=== PATIENT | male | born 1975 | race African-American/Black ===

== ENCOUNTER 2017-05-19 09:00 | Inpatient (IN) | payer MEDICARE, OTHER ==
[~2017-05-19] VITALS: Ht 185.4 cm; Wt 73.0 kg
--- NOTE | ~2017-05-19 | HP ---
Unit #: [id number] #: [id number] Patient: ZELDA CHAN [id number] [place] [address] [id number] I MR#: [id number] NAME: ZELDA CHAN ROOM: 74 Age: 42 Sex: M Admission Date: 05/19/2017 : 1975 Attending Physician: Carmel Garner M.D. Admitting Physician: Carmel Garner M.D. Primary Care Physician: Generic Doctor Not In System HISTORY AND PHYSICAL HISTORY OF PRESENT ILLNESS Zelda is a 42-year-old male admitted on 05/19/2017 to [facility] for depression with suicidal ideation and detox from crack cocaine. PAST MEDICAL HISTORY None. PAST SURGICAL HISTORY None. ALLERGIES None. SOCIAL HISTORY Smokes 2 packs of cigarettes daily. No alcohol use and does report daily use of crack cocaine. He is currently single and living alone. FAMILY HISTORY Noncontributory. REVIEW OF SYSTEMS CONSTITUTIONAL: No fever or chills. HEENT: Denies any sore throat, ear pain or runny nose. CARDIOVASCULAR: Denies chest pain, irregular heart rhythm or palpitations. CHEST: Denies shortness of breath or cough. No hemoptysis. GASTROINTESTINAL: Denies nausea, vomiting, diarrhea or chronic constipation. ENDOCRINE: Denies history of increased thirst or urination. No recent significant weight loss or gain. GENITOURINARY: Denies dysuria, frequency, or hematuria. SKIN: Denies any rashes. HEMATOLOGIC: Denies history of increased bleeding or bruising. MUSCULOSKELETAL: Denies any hot, swollen joints. No generalized muscle pain. NEUROLOGIC: Denies problems with vision or speech. No frequent, severe headaches. No numbness, tingling or weakness in any extremities. Denies loss of bladder or bowel control. CURRENT MEDICATIONS None. PHYSICAL EXAMINATION GENERAL: Alert, oriented, in no acute distress. Unit #: [id number] #: [id number] Patient: ZELDA CHAN VITAL SIGNS: Blood pressure 104/84, heart rate 95, respirations 16, temperature 98.7. HEIGHT: 6 feet 1. WEIGHT: 161 pounds. SKIN: Warm and dry without rash or lesion. HEENT: Normocephalic. TMs not viewed. Oral and nasal passages clear. Conjunctivae clear. PERRLA. EOMs intact. NECK: Supple without lymphadenopathy or thyromegaly. HEART: Regular rate and rhythm without murmur. LUNGS: Clear. ABDOMEN: Soft, nontender, without masses or hepatosplenomegaly. : Not done. EXTREMITIES: No evidence of cyanosis, clubbing or edema. Moves all without focal deficit. NEUROLOGICAL: Grossly within normal limits. Cranial Nerves: II: Visual webb are intact. III, IV AND : Extraocular movements are intact. Pupils are equal, round and reactive to light. V: Facial sensation is grossly normal. VII: Facial movements and expression are normal. VIII: Auditory acuity grossly intact. IX, X: Uvula is midline. Phonation is normal. XI: Patient shrugs shoulders and turns head normally. XII: Tongue protrudes in the midline. Sensory and Motor Function: Sensory and motor sensation is grossly normal. Motor: moves all extremities well. Coordination: Gait is normal. Deep Tendon Reflexes: Intact. IMPRESSION Psychiatric admission. RECOMMENDATIONS PSYCHIATRIC: Per psychiatrist. MEDICAL: No contraindication to participate in facility's activities. MEDICAL PROGNOSIS Good. MEDICAL CONDITION Stable. Dictated by... Maciej Brown/mary ellen TD: 05/19/2017 23:06 JOB #: [id number] Unit #: [id number] #: [id number] Patient: ZELDA CHAN HISTORY AND PHYSICAL Page 1 of 1 X FERN GUILLEN APRN X HISTORY AND PHYSICAL
--- NOTE | ~2017-05-19 | PN ---
Unit #: [id number] #: [id number] Patient: ZELDA NAVARRO [id number] [facility] [address] [place] [address] [id number] I MR#: [id number] NAME: ZELDA NAVARRO ROOM: 30 Age: 42 Sex: M Admission Date: 05/19/2017 : 1975 Attending Physician: Carmel Garner M.D. Admitting Physician: aCrmel Garner M.D. Primary Care Physician: Generic Doctor Not In System [facility] PROGRESS NOTES DATE May 29, 2017 DISCUSSION Mr. Navarro is a 42-year-old male, who was seen today and chart was reviewed and the case was discussed with the staff. He has been anxious, withdrawn, and rather seclusive to himself. Meanwhile, he has been cooperative with the treatment recommendations and he has been taking the medications and appears to be showing some improvement in his mood and psychosis. MENTAL STATUS EXAMINATION Middle-aged male, who was casually dressed with fair personal hygiene and appears to be in no acute distress or discomfort. He was awake and alert with intact orientation. His mood is anxious with a congruent affect. His speech is slow and goal-directed. He denies any suicidal or homicidal ideations. His insight and judgment remain slightly impaired. TREATMENT PLAN 1. We will continue him on his current medications and treatment protocol, and will monitor his response to the medications, and make further adjustments as needed. 2. We will continue to followup. Dictated by... Cj Fermin/cale TD: 05/30/2017 07:06 JOB #: [id number] Unit #: [id number] #: [id number] Patient: ZELDA NAVARRO PROGRESS NOTES Page 1 of 1 X Carmel Garner MD PROGRESS NOTE
--- NOTE | ~2017-05-19 | PN ---
Unit #: [id number] #: [id number] Patient: ZELDA NAVARRO [id number] [facility] [address] [place] [address] [id number] I MR#: [id number] NAME: ZELDA NAVARRO ROOM: [facility] Age: 42 Sex: M Admission Date: 05/19/2017 : 1975 Attending Physician: Carmel Garner M.D. Admitting Physician: Carmel Garner M.D. Primary Care Physician: Kianna Doctor Not In System [facility] PROGRESS NOTES DATE 05/23/2017 DISCUSSION Mr. Navarro is a 42-year-old, male who was seen today and chart was reviewed and case was discussed with the staff. He has been anxious, withdrawn and rather seclusive to himself. Meanwhile, he has been cooperative with treatment recommendations. He has been taking the medication and tolerating them fairly well with no reported side effects. MENTAL STATUS EXAM Middle-aged male who was casually dressed with fair personal hygiene, appears to be in no acute distress or discomfort. He was awake and alert on interaction with intact orientation. His mood was anxious with impaired attention and concentration. His mood was anxious with a congruent affect. His speech was slow and restricted in content. He denies any suicidal or homicidal ideation. Also, denies any auditory or visual hallucinations. His insight and judgement remains slightly impaired. TREATMENT PLAN 1. We will continue him on his current medications and treatment protocol. We will monitor his response to the medication and make further adjustments as needed. 2. We will continue to follow up. Dictated by... Cj Fermin/anayeli TD: 05/23/2017 21:55 JOB #: [id number] Unit #: [id number] #: [id number] Patient: ZELDA NAVARRO PROGRESS NOTES Page 1 of 1 X Carmel Garner MD PROGRESS NOTE
--- NOTE | ~2017-05-19 | PN ---
Unit #: [id number] #: [id number] Patient: ZELDA NAVARRO [id number] [facility] [address] [place] [address] [id number] I MR#: [id number] NAME: ZELDA NAVARRO ROOM: [facility] Age: 42 Sex: M Admission Date: 05/19/2017 : 1975 Attending Physician: Carmel Garner M.D. Admitting Physician: Carmel Garner M.D. Primary Care Physician: Kianna Doctor Not In System [facility] PROGRESS NOTES DATE OF SERVICE: 05/22/2017 SUBJECTIVE Mr. Navarro is a 42-year-old male with mood disorder, who was seen today and chart was reviewed and case was discussed with the staff. He has been anxious, withdrawn, and rather seclusive to himself. Meanwhile, he has been cooperative with treatment recommendation and has been taking medications and tolerating them fairly well with no reported side effects. MENTAL STATUS EXAMINATION Middle-aged male who was casually dressed with fair personal hygiene, appears to be in no acute distress or discomfort. He was awake and alert with impaired attention and concentration. His mood was anxious with a congruent affect. His speech was slow and restricted in content. He denies any suicidal or homicidal ideations. His insight and judgment remain slightly impaired. TREATMENT PLAN 1. We will continue on his current medications and treatment protocol. We will monitor his response to medications and make further adjustments as needed. 2. We will continue to follow up. Dictated by... Cj Fermin/tiffany TD: 05/22/2017 23:32 JOB #: [id number] Unit #: [id number] #: [id number] Patient: ZELDA NAVARRO PEAJOAQUÍN PROGRESS NOTES Page 1 of 1 X Carmel Garner MD PROGRESS NOTE
--- NOTE | ~2017-05-19 | PN ---
Unit #: [id number] #: [id number] Patient: ZELDA NAVARRO [id number] [facility] [address] [place] [address] [id number] I MR#: [id number] NAME: ZELDA NAVARRO ROOM: 74 Age: 42 Sex: M Admission Date: 05/19/2017 : 1975 Attending Physician: Carmel Garner M.D. Admitting Physician: Carmel Garner M.D. Primary Care Physician: Kianna Doctor Not In System [facility] PROGRESS NOTES DATE 05/21/2017 DISCUSSION Mr. Navarro is a 42-year-old, male who was seen today and chart was reviewed and case was discussed with the staff. He has been anxious and withdrawn. His nausea and agitation continue. He has been cooperative with the treatment recommendations. He has been taking the medication and tolerating them fairly well with no reported side effects. MENTAL STATUS EXAM Middle-aged male who was casually dressed with fair personal hygiene, appears to be in no acute distress or discomfort. He was awake and alert with impaired attention and concentration. His mood was anxious with congruent affect. He denies any suicidal or homicidal ideation. He also denies any auditory or visual hallucinations. His insight and judgement remain slightly impaired. TREATMENT PLAN 1. We will continue his current medications and treatment protocol. We will monitor his response to the medication and make further adjustments as needed. 2. We will continue to follow up. Dictated by... Cj Fermin/gz TD: 05/22/2017 13:53 JOB #: [id number] Unit #: [id number] #: [id number] Patient: ZELDA NAVARRO PEAJOAQUÍN PROGRESS NOTES Page 1 of 1 X Carmel Garner MD X PROGRESS NOTE
--- NOTE | ~2017-05-19 | PN ---
Unit #: [id number] #: [id number] Patient: ZELDA NAVARRO [id number] [facility] [address] [place] [address] [id number] I MR#: [id number] NAME: ZELDA NAVARRO ROOM: P174 Age: 42 Sex: M Admission Date: 05/19/2017 : 1975 Attending Physician: Carmel Garner M.D. Admitting Physician: Carmel Garner M.D. Primary Care Physician: Generic Doctor Not In System [facility] PROGRESS NOTES DATE OF SERVICE 05/24/2017 DISCUSSION Mr. Navarro is a 42-year-old male who was seen today. Chart was reviewed and case was discussed with the staff. He appears to be doing much better and has been able to come out of his room and has been participating in treatment-related activities. MENTAL STATUS EXAMINATION Middle-aged male who is casually dressed with fair personal hygiene, appears to be in no acute distress or discomfort. He was awake and alert on interaction with intact orientation. His mood is anxious with congruent affect. He denies any suicidal or homicidal ideations. His insight and judgment remain slightly impaired. TREATMENT PLAN 1. We will continue him on his current medications and treatment protocol. We will monitor his response to the medications and make further adjustments as needed. 2. We will continue to follow up. Dictated by... Carmel Garner M.D. DONNA/nabil TD: 05/24/2017 08:20 JOB #: [id number] [facility] PROGRESS NOTES Page 1 of 1 X Carmel Garner MD PROGRESS NOTE
--- NOTE | ~2017-05-19 | PN ---
Unit #: [id number] #: [id number] Patient: ZELDA NAVARRO [id number] [facility] [address] [place] [address] [id number] I MR#: [id number] NAME: ZELDA NAVARRO ROOM: 30 Age: 42 Sex: M Admission Date: 05/19/2017 : 1975 Attending Physician: Carmel Garner M.D. Admitting Physician: Carmel Garner M.D. Primary Care Physician: Kianna Doctor Not In System [facility] PROGRESS NOTES DATE May 26, 2017 DISCUSSION Mr. Navarro is a 42-year-old male, who was seen today and chart was reviewed and the case was discussed with the staff. He has been anxious, withdrawn, and seclusive to himself. Meanwhile, he has been cooperative with the treatment recommendations and he has been taking the medications and tolerating them fairly well with no reported side effects. MENTAL STATUS EXAMINATION Middle-aged male, who was casually dressed with fair personal hygiene and appears to be in no acute distress or discomfort. He was awake and alert with impaired attention and concentration. His mood is anxious with a congruent affect. His speech is slow and tangential. His thought processes are disorganized with some looseness of associations and flight of ideas. His insight and judgment remain significantly impaired. TREATMENT PLAN 1. We will continue him on his current medications and treatment protocol, and will monitor his response to the medications, and make further adjustments as needed. 2. We will continue to followup. Dictated by... Cj Fermin/cale TD: 05/26/2017 10:53 JOB #: [id number] Unit #: [id number] #: [id number] Patient: ZELDA NAVARRO PROGRESS NOTES Page 1 of 1 X Carmel Garner MD PROGRESS NOTE
--- NOTE | ~2017-05-19 | A ---
[facility] Nutrition Therapy DATE: 05/22/17 Patient: ZELDA SWARTZMIKE Physician: AFAIRF Address: [address] [place] [address] Room/Bed: [address], Zip: [place] [address] Admit Date: 05/19/17 Date of : [birth year] Height: 6 1 Weight: [id number] NUTRITIONAL ASSESSMENT: REASON: UNINTENTIONAL WEIGHT LOSS PATIENT ADMITTED FOR DETOX, SI, AND DEPRESSION PMH: NONE Anthropometrics: HT: 73", WT: 161#, BMI: 21.2 Labs: 05/20/17- GLU: 333, ALB: 3.4 Meds: BUSPAR, WELLBUTRIN, DESYREL Assessment: PATIENT IS A 42 Y/O MALE ADMITTED FOR SI, DEPRESSION, AND DETOX. PATIENT IS CURRENTLY UNEMPLOYED, ON DISABILITY, LIVES ALONE, SMOKES 2 PPD, HAS HAD DAILY COCAINE USE FOR LAST 2 MONTHS, AND HE HAS FREQUENT MARIJUANA AND ETOH ABUSE. UPON ADMIT PATIENT STATED A POOR APPETITE WITH A 100# WEIGHT LOSS OVER LAST SEVERAL MONTHS. WEIGHT HX PER [facility] SHOWS A WT OF 160# [address] IS UNSURE HOW ACCURATE PATIENT'S STATED WEIGHT LOSS IS. NURSING REPORTS CONSISTENTLY GOOD PO INTAKES. THERE ARE NO SKIN OR GI ISSUES NOTED ATT. CURRENT PSYCH MEDS MAY CAUSE WEIGHT AND APPETITE INCREASES. PATIENT IS ON A REGULAR DIET WITH LARGE PORTION ENTREES, AND HIS BMI IS WITHIN A HEALTHY RANGE. Dx: UNINTENTIONAL WEIGHT LOSS? R/T CURRENT CONDITION, DRUG USE AEB SELF-REPORTED WEIGHT LOSS, NUTRITIONAL RISK POINT Intervention: REGULAR DIET, LARGE PORTIONS, MEDS PER MD, PSYCH Monitoring, Evaluation and Goals: 1. ADEQUATE PO INTAKES >50% OF MEALS 2. PREVENT, CORRECT MICRO/MACRO NUTRIENT DEFICIENCIES 3. WEIGHT; MAINTAIN CURRENT WEIGHT, PREVENT WEIGHT LOSS MONITOR: WEIGHTS, LABS, PO/FLUID INTAKES Recommendations: 1. CONTINUE REGULAR DIET WITH LARGE PORTION ENTREES TOLERATED. OFFER SNACKS BETWEEN MEALS 2. ENCOURAGE ADEQUATE PO AND FLUID INTAKES 3. OBTAIN WEIGHTS ROUTINELY (EVERY 3-4 DAYS) [facility] Nutrition Therapy DATE: 05/22/17 Patient: ZELDA ROCIO Physician: ANAIF Address: [address] [place] [address] Room/Bed: [address], Zip: [place] [address] Admit Date: 05/19/17 Date of : [birth year] Height: 6 1 Weight: [id number] TO F/U PER PROTOCOL AND PRN R/T PATIENT MILDLY COMPROMISED Respectfully, ANNETTE RAZA, RD, LD [facility] cc: client file
--- NOTE | ~2017-05-19 | CO ---
Unit #: [id number] #: [id number] Patient: ZELDA CHAN [id number] [facility] [address] [place] [address] [id number] I MR#: [id number] NAME: ZELDA CHAN ROOM: [facility] Age: 42 Sex: M Admission Date: 05/19/2017 : 1975 Attending Physician: Carmel Garner M.D. Consultation Date: 05/19/2017 CONSULTATION REPORT HISTORY OF PRESENT ILLNESS Zelda had blood sugar of 333 on 05/21/2017 and urine glucose of greater than a 1000 negative ketones. He denies any history of diabetes. Repeat blood sugar this evening with 369. He has not had any frequent urination. No other complaints. PHYSICAL EXAMINATION CARDIAC: Regular rate and rhythm. No murmurs, gallops, or rubs. RESPIRATORY: Clear to auscultation bilaterally. ASSESSMENT AND PLAN Elevated blood sugars. We will begin sliding scale insulin and repeat UA. We will also begin a consistent carb diet and obtain a licensed master social worker consult. The patient was instructed to follow up with primary care provider, licensed master social worker to assist the patient in obtaining primary care. Dictated by... Maciej Brown/tiffany TD: 05/24/2017 00:08 JOB #: [id number] CONSULTATION REPORT Page 1 of 1 X FERN GUILLEN APRN CONSULTATION REPORT
--- NOTE | ~2017-05-19 | PN ---
Unit #: [id number] #: [id number] Patient: ZELDA NAVARRO [id number] [facility] [address] [place] [address] [id number] I MR#: [id number] NAME: ZELDA NAVARRO ROOM: 30 Age: 42 Sex: M Admission Date: 05/19/2017 : 1975 Attending Physician: Carmel Garner M.D. Admitting Physician: Carmel Garner M.D. Primary Care Physician: Generic Doctor Not In System [facility] PROGRESS NOTES DATE 05/27/2017 DISCUSSION Mr. Navarro is a 42-year-old male who was seen today and chart was reviewed and case was discussed with the staff. He remains confused, anxious, disorganized and acutely psychotic with significant paranoia and bizarre behavior. Meanwhile, he has been taking medications and tolerating them fairly well with no reported side effects. MENTAL STATUS EXAMINATION Middle-aged male who was casually dressed with fair personal hygiene and appears to be in no acute distress or discomfort. He was awake and alert with impaired attention and concentration. His mood was anxious with congruent affect. His speech is slow and tangential. His thought processes were disorganized with some looseness of associations and paranoid ideations and delusional behavior. His insight and judgement remains significantly impaired. TREATMENT PLAN 1. Will continue on his current treatment protocol and will monitor his response and make further adjustments as needed. 2. Will continue to follow up. Dictated by... Cj Fermin/mary ellen TD: 05/27/2017 22:22 JOB #: [id number] Unit #: [id number] #: [id number] Patient: ZELDA NAVARRO PROGRESS NOTES Page 1 of 1 X Carmel Garner MD X PROGRESS NOTE
--- NOTE | ~2017-05-19 | PA ---
Unit #: [id number] #: [id number] Patient: ZELDA NAVARRO [id number] [facility] [address] [place] [address] [id number] I MR#: [id number] NAME: ZELDA NAVARRO ROOM: P174 Age: 42 Sex: M Admission Date: 05/19/2017 : 1975 Date of Assessment: Attending Physician: Carmel Garner M.D. Admitting Physician: Carmel Garner M.D. Primary Care Physician: Generic Doctor Not In System PSYCHIATRIC ASSESSMENT DATE OF SERVICE 05/19/2017. IDENTIFYING DATA Mr. Navarro is a 42-year-old single male, who is a resident of [place], [place], and was self-referred to the hospital on a voluntary basis. CHIEF COMPLAINT "I've been using a lot and trying to get off drugs." HISTORY OF PRESENT ILLNESS Mr. Navarro is a 42-year-old male with dual diagnosis of mood disorder and substance abuse and dependence, who was self-referred to the hospital reporting increasing substance use and suicidal ideation stating "I have been using a lot and trying to get off drugs and I have been using crack cocaine about 100 dollars a day smoke and I have been using this amount for the past 10 years. I was sober for a couple of months and my last use was yesterday. I'm having suicidal thoughts. I'm getting too thin. I want to jump off a building. I'm getting too thin, I can't keep using. I live at [facility] for the past 6 months and I go to AA meetings about twice a week, but I cannot stop using." He does report increasing depression, feelings of hopelessness and helplessness, and suicidal ideations and as such, a recommendation for inpatient level of care for safety and stabilization was made and the patient was transferred to us. SUBSTANCE ABUSE HISTORY The patient reports crack cocaine to be his drug of choice. He reports that he has been using a gram of crack cocaine on a daily basis via smoking and denies any other substance abuse issues. PAST PSYCHIATRIC HISTORY The patient has not had any prior inpatient or outpatient psychiatric treatment. Review of the medical records indicate currently he is not active in any treatment program, is not seeing a psychiatrist, and is not taking any psychotropic medications. PAST MEDICAL HISTORY No acute or chronic medical illnesses. ALLERGIES No known medication allergies. Unit #: [id number] #: [id number] Patient: ZELDA NAVARRO CURRENT MEDICATIONS None. PERSONAL AND SOCIAL HISTORY A 42-year-old male, who reports that he is single, unemployed, and lives by himself and has poor social support system. MENTAL STATUS EXAMINATION Middle-aged male, who was casually dressed with fair personal hygiene, appears to be in no acute distress or discomfort. He was awake and alert on interaction with intact orientation to time, place, and person. His mood was anxious and depressed with a congruent affect. His speech was slow and restricted in content. His thought processes were disorganized with some looseness of associations and flight of ideas. His insight and judgment remain significantly impaired. DIAGNOSTIC IMPRESSION Psychiatric: Major depressive disorder, recurrent, moderate, without psychotic features and cocaine dependence, moderate. Medical: None. Stressors: Moderate psychosocial stressors. TREATMENT PLAN 1. The patient has presented with a history of mood disorder and has been decompensating and will need inpatient hospitalization for safety and stabilization. We will start him back on his home medications. We will monitor his response make further adjustments as needed. 2. Supportive therapy was provided to the patient. 3. Safe, structured, and nourishing environment will be provided. ESTIMATED LENGTH OF STAY 4 to 5 days. ABILITY TO HELP SELF Limited. WILLINGNESS TO HELP SELF The patient appears to be willing to help self. STRENGTHS 1. Communicative. 2. Cooperative. PROBLEMS 1. Chronic dysphoric symptoms. 2. Chronic chemical dependency. 3. Poor social support system. DISCHARGE CRITERIA This will be contingent upon the patient's ability to show resolution of his depression and anxiety as well as his ability to stay safe to himself and others, particularly after discharge from the hospital. Dictated by... Carmel Garner M.D. Unit #: [id number] #: [id number] Patient: ZELDA NAVARRO IAA/modl TD: 05/20/2017 17:28 JOB #: [id number] PSYCHIATRIC ASSESSMENT Page 1 of 1 X Carmel Garner MD X PSYCHIATRIC ASSESSMENT
--- NOTE | ~2017-05-19 | PN ---
Unit #: [id number] #: [id number] Patient: ZELDA NAVARRO [id number] [facility] [address] [place] [address] [id number] MR#: [id number] NAME: ZELDA NAVARRO ROOM: 30 Age: 42 Sex: M Admission Date: 05/19/2017 : 1975 Attending Physician: Carmel Garner M.D. Admitting Physician: Carmel Garner M.D. Primary Care Physician: Generic Doctor Not In System [facility] PROGRESS NOTES DATE OF SERVICE 05/30/2017 DISCUSSION Mr. Navarro is a 42-year-old, male who was seen today and chart was reviewed and case was discussed with the staff. He has been doing fairly well and appears to be showing improvement in his confusion and psychosis as he has been compliant with treatment recommendations. He has been taking medications and tolerating them fairly well with no reported side effects. MENTAL STATUS EXAM Middle-aged male who was casually dressed with fair personal hygiene, appears to be in no acute distress or discomfort. He was awake and alert on interaction with intact orientation. His mood was anxious with congruent affect. He denies any suicidal or homicidal ideation. His insight and judgement remains slightly impaired. TREATMENT PLAN 1. We will continue him on his current medications and treatment protocol. We will monitor his response to the medication and make further adjustments as needed. 2. We will continue to follow up. Dictated by... Cj Fermin/anayeli TD: 05/30/2017 22:23 JOB #: [id number] Unit #: [id number] #: [id number] Patient: ZELDA NAVARRO PROGRESS NOTES Page 1 of 1 X Carmel Garner MD PROGRESS NOTE
--- NOTE | ~2017-05-19 | PN ---
Unit #: [id number] #: [id number] Patient: ZELDA NAVARRO [id number] [facility] [address] [place] [address] [id number] I MR#: [id number] NAME: ZELDA NAVARRO ROOM: 74 Age: 42 Sex: M Admission Date: 05/19/2017 : 1975 Attending Physician: Carmel Garner M.D. Admitting Physician: Carmel Garner M.D. Primary Care Physician: Generic Doctor Not In System [facility] PROGRESS NOTES DATE OF SERVICE 05/25/2017 DISCUSSION Mr. Navarro is a 42-year-old male who was seen today. Chart was reviewed and case was discussed with the staff who reported the patient has been very bizarre, disorganized, and had a rough night last night as he is awake all night long and would not go to sleep and was wandering around, going to other patients' room, needing constant redirection and getting agitated, aggressive, and hostile. Intramuscular injection was given to cut down on his psychosis and agitation, and still did not sleep good and was still up this morning, pacing, and wanting to be discharged from the hospital, making statements that he has to go to court tomorrow, but then was unable to comprehend informations given and was making statements as if I told him to rub (1) __ on his eyes, and then he will start mumbling and was seen to be unable to carry on any meaningful conversation. As such recommendation was made for the patient to continue the current level of precautions and treatment. We will monitor his response to treatment interventions. We will make further decision particularly about discharge planning as needed. Dictated by... Cj Fermin/nabil TD: 05/25/2017 12:37 JOB #: [id number] [facility] PROGRESS NOTES Page 1 of 1 X Carmel Garner MD PROGRESS NOTE
--- NOTE | ~2017-05-19 | PN ---
Unit #: [id number] #: [id number] Patient: ZELDA NAVARRO [id number] [facility] [address] [place] [address] [id number] I MR#: [id number] NAME: ZLEDA NAVARRO ROOM: 30 Age: 42 Sex: M Admission Date: 05/19/2017 : 1975 Attending Physician: Carmel Garner M.D. Admitting Physician: Carmel Garner M.D. Primary Care Physician: Kianna Doctor Not In System [facility] PROGRESS NOTES DATE May 28, 2017 DISCUSSION Mr. Navarro is a 42-year-old male, who was seen today and chart was reviewed and the case was discussed with the staff. He has been anxious, withdrawn, and seclusive to himself. Meanwhile, he has been cooperative with the treatment recommendations and he has been taking the medications and tolerating them fairly well with no reported side effects. MENTAL STATUS EXAMINATION Middle-aged male, who was casually dressed with fair personal hygiene and appears to be in no acute distress or discomfort. He was awake and alert with impaired attention and concentration. His mood is anxious with a congruent affect. He denies any suicidal or homicidal ideations. His insight and judgment remain slightly impaired. TREATMENT PLAN 1. We will continue him on his current medications and treatment protocol, and will monitor his response to the medications, and make further adjustments as needed. 2. We will continue to followup. Dictated by... Cj Fermin/cale TD: 05/29/2017 11:49 JOB #: [id number] Unit #: [id number] #: [id number] Patient: ZELDA NAVARRO PROGRESS NOTES Page 1 of 1 X Carmel Garner MD X PROGRESS NOTE
--- NOTE | ~2017-05-19 | PN ---
Unit #: [id number] #: [id number] Patient: ZELDA NAVARRO [id number] [facility] [address] [place] [address] [id number] I MR#: [id number] NAME: ZELDA NAVARRO ROOM: 74 Age: 42 Sex: M Admission Date: 05/19/2017 : 1975 Attending Physician: Carmel Garner M.D. Admitting Physician: Carmel Garner M.D. Primary Care Physician: Kianna Doctor Not In System [facility] PROGRESS NOTES DATE 05/20/2017 DISCUSSION Mr. Navarro is a 42-year-old, male who was seen today and chart was reviewed and case was discussed with the staff. He has anxious, withdrawn and rather seclusive to himself. Meanwhile, he has been cooperative with the treatment recommendations. He has been taking the medication and tolerating them fairly well. MENTAL STATUS EXAM Middle-aged male who was casually dressed with fair personal hygiene, appears to be in slight distress or discomfort. He was awake and alert with impaired attention and concentration. His mood was anxious and depressed with congruent affect. His speech was slow and restricted in content. He reports having suicidal ideation but denies any homicidal ideation. Also, denies any auditory or visual hallucinations. His insight and judgement remains slightly impaired. TREATMENT PLAN 1. We will continue him on his current medications and treatment protocol. We will monitor his response to the medication and make further adjustments as needed. 2. We will continue to follow up. Dictated by... Cj Fermin/anayeli TD: 05/22/2017 04:31 JOB #: [id number] Unit #: [id number] #: [id number] Patient: ZELDA NAVARRO PROGRESS NOTES Page 1 of 1 X Carmel Garner MD X PROGRESS NOTE
--- NOTE | ~2017-05-19 | CO ---
Unit #: [id number] #: [id number] Patient: ZELDA CHAN [id number] [facility] [address] [place] [address] [id number] I MR#: [id number] NAME: ZELDA CHAN ROOM: 30 Age: 42 Sex: M Admission Date: 05/19/2017 : 1975 Attending Physician: Carmel Garner M.D. Primary Care Physician: Generic Doctor Not In System CONSULTATION REPORT Medical consult was requested by Dr. Garner. HISTORY OF PRESENT ILLNESS Zelda was seen yesterday for blood sugars greater than 300 with glucose in his urine greater than 1000. Yesterday, he had negative ketones. This morning, repeat UA shows glucose continues to be greater than 1000; however, he does have negative ketone still. He has been refusing any insulin today and is refusing blood sugar checks. He has no complaints. PHYSICAL EXAMINATION CARDIAC: Regular rate and rhythm. No murmurs, gallops, or rubs. RESPIRATORY: Clear to auscultation bilaterally. ASSESSMENT AND PLAN Type 2 diabetes. We will obtain an A1c, BMP, and UA, and urine microalbumin in the morning. We will also begin metformin 500 mg p.o. daily and continue to attempt Accu-Cheks. We will continue to follow notify these if blood sugars are continued to be greater than 300. Dictated by..Maciej Bauman/tiffany TD: 06/06/2017 17:36 JOB #: [id number] CONSULTATION REPORT Page 1 of 1 X FERN GUILLEN APRN CONSULTATION REPORT
--- NOTE | ~2017-05-19 | DS ---
Unit #: [id number] #: [id number] Patient: ZELDA NAVARRO [id number] [facility] [address] [place] [address] [id number] I MR#: [id number] NAME: ZELDA NAVARRO ROOM: P130 Age: 42 Sex: M Admission Date: 05/19/2017 : 1975 Discharge Date: 05/31/2017 Attending Physician: Carmel Garner M.D. Primary Care Physician: Generic Doctor Not In System DISCHARGE SUMMARY IDENTIFYING DATA Mr. Navarro is a 42-year-old single male, who is a resident of [place], [place], and was self-referred to the hospital on a voluntary basis. DISCHARGE DIAGNOSES Psychiatric: Major depressive disorder, recurrent, moderate, without psychotic features and cocaine dependence, moderate. Medical: None. Stressors: Moderate psychosocial stressors. HISTORY OF PRESENT ILLNESS Mr. Gross is a 42-year-old male with dual diagnosis of mood disorder and substance abuse and dependence, who was self-referred to the hospital reporting increasing substance use and suicidal ideation stating "I have been using a lot and trying to get off drugs and I have been using crack cocaine about 100 dollars a day smoke and I have been using this amount for the past 10 years. I was sober for a couple of months and my last use was yesterday. I'm having suicidal thoughts. I'm getting too thin. I want to jump off a building. I'm getting too thin, I can't keep using. I live at [facility] for the past 6 months and I go to AA meetings about twice a week, but I cannot stop using." He does report increasing depression, feelings of hopelessness and helplessness, and suicidal ideations and as such, a recommendation for inpatient level of care for safety and stabilization was made and the patient was transferred to us. PAST MEDICAL HISTORY No acute or chronic medical illnesses. PAST PSYCHIATRIC HISTORY The patient has not had any prior inpatient or outpatient psychiatric treatment. Review of the medical records indicate currently he is not active in any treatment program, is not seeing a psychiatrist, and is not taking any psychotropic medications. HOSPITAL COURSE The patient was admitted to the adult psychiatric unit at [facility] and was oriented to the hospital environment. Routine p.r.n. medications were initiated, and he was started back on his home medications. However, he was seen to be exhibiting some acute psychosis and confusion, and disorientation and as such, Seroquel was added even though he has been getting the long-acting injectable antipsychotic in the Unit #: [id number] #: [id number] Patient: PONMIKE,ZELDA form of Haldol Decanoate. He has been seen to be showing some slow improvement in his mood and psychosis and as such, it was decided that he will be discharged home and will continue treatment on an outpatient basis. DISCHARGE MEDICATIONS 1. BuSpar 10 mg b.i.d. for anxiety. 2. Wellbutrin XL 150 mg in the morning for depression. 3. Seroquel 100 mg at bedtime for psychosis. 4. Haldol Decanoate 75 mg intramuscular every 30 days for psychosis. 5. Cogentin 2 mg b.i.d. for EPS. DISCHARGE CONDITION Stable. PROGNOSIS Fair. Dictated by... Cj Fermin/tiffany TD: 05/31/2017 07:08 JOB #: [id number] DISCHARGE SUMMARY Page 1 of 1 X Carmel Garner MD X DISCHARGE SUMMARY
[2017-05-20 11:26] LABS: BASOPHIL% 0.6 % (0-2.5); EOSINOPHIL# 0.1 X10e3 (0-0.7); HEMATOCRIT 42.6 % (38.0-50.0); HEMOGLOBIN 13.7 gm/dL (13.0-16.0); LYMPHOCYTE% 24.3 % (17.0-45.0); MEAN CORPUSCULAR HEMOGLOBIN 29.6 PG (28-34); MEAN CORPUSCULAR HGB CONC 32.2 g/dL (30-36); MEAN PLATELET VOLUME 11.4 FL (6.5-11.5); MONOCYTE# 0.3 X10e3 (0-1.0); MONOCYTE% 7.4 % (3.0-12.0); NEUTROPHIL# 2.7 X10e3 (1.5-7.1); NEUTROPHIL% 64.7 % (40-75); PLATELET COUNT 159 X10e3 (140-420); RED BLOOD COUNT 4.63 X10e (3.90-5.60); RED CELL DISTRIBUTION WIDTH 12.7 % (11.0-15.5); WHITE BLOOD COUNT 4.2 X10e3 (4.0-10.5)
[2017-05-20 11:34] LABS: DIFF IND NO
[2017-05-20 11:36] LABS: ALBUMIN SERUM 3.4 g/dL (3.5-5.0); BILIRUBIN,TOTAL 1.2 mg/dL (0.2-2.0); BUN/CREATININE RATIO 12.5; CALCIUM SERUM 8.9 mg/dL (8.4-10.2); CREATININE SERUM 0.8 mg/dL (0.6-1.4); GLOM FILT RATE Estimated 126.9 mL/min (>60); POTASSIUM 4.6 mmol/L (3.5-5.1); PROTEIN TOTAL SERUM 6.1 g/dL (6.0-8.3)
[2017-05-22 12:37] LABS: URINE APPEARANCE CLEAR; URINE BILIRUBIN NEG (NEG); URINE BLOOD NEG (NEG); URINE COLOR YELLOW; URINE GLUCOSE >1000 MG/DL (NEG); URINE KETONE NEG (NEG); URINE LEUKOCYTE ESTERASE TRACE (NEG); URINE NITRATE NEG (NEG); URINE PROTEIN NEG (NEG); URINE SPECIFIC GRAVITY 1.011 (1.003-1.035); URINE UROBILINOGEN 0.2 MG/DL (NEG)
[2017-05-22 12:43] LABS: URBCS1 AUWI 0-2 /[HPF] (0-2); URINE BACTERIA AUWI 2+ (NEGATIVE); URINE SQUAMOUS EPITHELIAL CELL NONE SEEN /[HPF]
[2017-05-22 13:16] LABS: AMPHETAMINE NEG (NEG); BARBITURATES NEG (NEG); BENZODIAZEPINES NEG (NEG); COCAINE NEG (NEG); MARIJUANA NEG (NEG); OPIATES NEG (NEG); TRICYCLIC ANTIDEPRESSANTS NEG (NEG); U METHADONE NEG (NEG)
[2017-05-24 10:37] LABS: URINE APPEARANCE CLEAR; URINE BILIRUBIN NEG (NEG); URINE BLOOD NEG (NEG); URINE COLOR YELLOW; URINE GLUCOSE >1000 MG/DL (NEG); URINE KETONE NEG (NEG); URINE LEUKOCYTE ESTERASE NEG (NEG); URINE NITRATE NEG (NEG); URINE PROTEIN NEG (NEG); URINE SPECIFIC GRAVITY 1.013 (1.003-1.035); URINE UROBILINOGEN 0.2 MG/DL (NEG)
[2017-05-25 10:15] LABS: BUN/CREATININE RATIO 28.33; CALCIUM SERUM 9.7 mg/dL (8.4-10.2); CREATININE SERUM 0.6 mg/dL (0.6-1.4); GLOM FILT RATE Estimated 142.8 mL/min (>60); POTASSIUM 4.3 mmol/L (3.5-5.1)
[2017-05-25 12:46] LABS: URINE APPEARANCE CLEAR; URINE BILIRUBIN NEG (NEG); URINE BLOOD NEG (NEG); URINE COLOR YELLOW; URINE GLUCOSE >1000 MG/DL (NEG); URINE KETONE NEG (NEG); URINE LEUKOCYTE ESTERASE 3+ (NEG); URINE NITRATE NEG (NEG); URINE PROTEIN NEG (NEG); URINE SPECIFIC GRAVITY 1.015 (1.003-1.035)
[2017-05-25 12:49] LABS: URBCS1 AUWI 0-2 /[HPF] (0-2); URINE BACTERIA AUWI 4+ (NEGATIVE); URINE SQUAMOUS EPITHELIAL CELL NONE SEEN /[HPF]
== END 2017-05-31 11:50 | disposition home or self-care (01) | DRG 885 ==
LOC: P1E 12:01 → P1S 05-25 13:41
PROVIDERS: Nurse Practitioner Family; Psychiatry & Neurology Psychiatry
PROC: HZ2ZZZZ Detoxification Services for Substance Abuse Treatment (ICD-10-PCS; principal; 2017-05-19)
DX: F33.1 Major depressive disorder, recurrent, moderate (principal); F14.20 Cocaine dependence, uncomplicated; R73.9 Hyperglycemia, unspecified
CPT/HCPCS: 80048; 80053; 80307; 81003; 82043; 82947; 83036; 85025; J1200; J3486